=== PATIENT | female | born 1950 | race Caucasian/White ===

== ENCOUNTER 2017-06-23 09:13 | Emergency (ER) | payer OTHER ==
[~2017-06-23] VITALS: Ht 157.5 cm; Wt 63.8 kg
[~2017-06-23 09:13] MED LIST: ASPIRIN81 M1 PO; Antivert PO; CARAFATE100 MG/ML PO; FISH OIL 1,0001 EACH PO; LOSARTAN POTASS50 MG PO; MULTIVITAMIN1 EAC2 PO; NAPROXEN500 MG PO; VITAMIN B12-FO1 EACH PO; Zestril,Prinivil PO
[2017-06-23 09:25] VITALS: BP 174/107
== END 2017-06-23 10:32 | disposition left against medical advice (07) ==
LOC: EME 09:13
DX: I10 Essential (primary) hypertension (principal); M79.89 Other specified soft tissue disorders; R51 Headache; Z53.21 Procedure and treatment not carried out due to patient leaving prior to being seen by health care provider

== ENCOUNTER 2018-02-26 18:53 | Observation (INO) | payer OTHER ==
[~2018-02-26] VITALS: Ht 157.5 cm; Wt 67.3 kg
[~2018-02-26 18:53] MED LIST changes: +CENTURY ULTIMA1 EAC3 PO; +CYANOCOBALAM1000 MCG PO; +FISH OIL 1,0001 EAC7 PO; -FISH OIL 1,0001 EACH PO; -MULTIVITAMIN1 EAC2 PO; -VITAMIN B12-FO1 EACH PO
[2018-02-26 19:42] LABS: HEMATOCRIT 41.3 % (36.0-46.0); HEMOGLOBIN 13.7 G/DL (11.9-15.5); MCH 32.8 PG (29.0-34.0); MCHC 33.2 G/DL (30.0-36.0); MCV 98.8 FL (83-99); PLATELET COUNT 260 K/uL (156-360); RBC DIS.WIDTH-CV 12.6 % (11.8-14.6); RBC DIS.WIDTH-SD 45.9 % (39-53); RED BLOOD COUNT 4.18 M/uL (3.80-5.20); WHITE BLOOD COUNT 8.2 K/uL (4.1-10.2)
[2018-02-26 19:53] LABS: CHLORIDE 108 mEq/L (99-109); POTASSIUM 4.2 mEq/L (3.7-5.4); SODIUM 143 mEq/L (136-147)
[2018-02-26 19:55] LABS: GLUCOSE 92 mg/dL (70-99)
[2018-02-26 19:59] LABS: CREATININE 0.8 mg/dL (0.6-1.3); GFR ESTIMATE (CALCULATED) > 59 mL/min/
[2018-02-26 20:00] LABS: UREA NITROGEN (BUN) 21 mg/dL (9-23)
[2018-02-26 20:19] LABS: TROP-I INTERPRETATION NEGATIVE; TROPONIN-I < 0.01 ng/mL (0.0-0.30)
[2018-02-26] MEDS ORDERED: AMLODIPINE BESYL5 MG PO (21:14)
[2018-02-26] MEDS ORDERED: METOPROLOL SUC100 MG PO (21:14)
[2018-02-26] MEDS ORDERED: LOSARTAN POTAS100 MG PO (21:14)
[2018-02-26 21:49] VITALS: BP 139/80
[2018-02-26 23:50] VITALS: BP 157/74
[2018-02-27 03:07] LABS: TROP-I INTERPRETATION NEGATIVE; TROPONIN-I 0.22 ng/mL (0.0-0.30)
[2018-02-27 03:27] LABS: HDL CHOLESTEROL 32 MG/DL (Desirable>=50); LDL CHOLESTEROL 84 mg/dL (Desirable<100); NON-HDL CHOLESTEROL 103 mg/dL (Desirable<160); TOTAL CHOLESTEROL 135 mg/dL (Desirable<200); TRIGLYCERIDES 93 MG/DL (Normal: <150)
[2018-02-27 04:00] VITALS: BP 140/85
[2018-02-27 07:39] LABS: D-DIMER ELISA < 150.00 ng/mLDDU (<230)
[2018-02-27 07:41] VITALS: BP 122/75
[2018-02-27 08:47] LABS: TROP-I INTERPRETATION NEGATIVE; TROPONIN-I 0.17 ng/mL (0.0-0.30)
[2018-02-27] MEDS ORDERED: NITROSTAT0.4 MG SL (11:46)
== END 2018-02-27 12:03 | disposition home or self-care (01) ==
LOC: EME 18:53 → EDOF 21:02 → ENRESERV 21:04 → 5WEST 21:37 → ENPENDDIS 02-27 → 5WEST 02-27 12:03
PROVIDERS: Physician Assistant
DX: R07.9 Chest pain, unspecified (principal); E78.5 Hyperlipidemia, unspecified; I10 Essential (primary) hypertension; I65.29 Occlusion and stenosis of unspecified carotid artery; F17.210 Nicotine dependence, cigarettes, uncomplicated; Z82.49 Family history of ischemic heart disease and other diseases of the circulatory system; Z78.0 Asymptomatic menopausal state; R20.2 Paresthesia of skin; Z79.82 Long term (current) use of aspirin; M54.2 Cervicalgia; R51 Headache
CPT/HCPCS: 70450; 71046; 72125; 80048; 80061; 84484; 85027; 85379; 93005; 99281; 99285; G0378; J1644

== ENCOUNTER 2018-03-23 10:02 | Day surgery (SDC) | payer OTHER ==
[~2018-03-23] VITALS: Ht 158.1 cm; Wt 68.0 kg
[~2018-03-23 10:02] MED LIST changes: +AMLODIPINE BESYL5 MG PO; +LOSARTAN POTAS100 MG PO; +METOPROLOL SUC100 MG PO; +NITROSTAT0.4 MG SL
[2018-03-23 18:03] VITALS: BP 135/69
[2018-03-23 19:00] VITALS: BP 133/82
[2018-03-24 00:24] VITALS: BP 118/59
[2018-03-24 04:01] VITALS: BP 112/67
[2018-03-24 05:18] LABS: BASOPHIL (%) 0.8 % (0-1); BASOPHIL COUNT 0.1 K/uL (0-0.1); EOSINOPHIL (%) 3.2 % (0-5); EOSINOPHIL COUNT 0.3 K/uL (0-0.3); HEMATOCRIT 37.4 % (36.0-46.0); IMMATURE GRANULOCYTE (%) 0.1 % (0.0-0.7); LYMPHOCYTE COUNT 2.5 K/uL (1.0-2.8); MCH 31.3 PG (29.0-34.0); MCHC 32.1 G/DL (30.0-36.0); MCV 97.4 FL (83-99); MONOCYTE COUNT 0.7 K/uL (0-0.8); NEUTROPHIL (%) 58.9 % (45-76); NEUTROPHIL COUNT 5.2 K/uL (1.8-6.4); PLATELET COUNT 234 K/uL (156-360); RBC DIS.WIDTH-CV 13.1 % (11.8-14.6); RBC DIS.WIDTH-SD 46.4 % (39-53); RED BLOOD COUNT 3.84 M/uL (3.80-5.20); WHITE BLOOD COUNT 8.8 K/uL (4.1-10.2)
[2018-03-24 05:50] LABS: CHLORIDE 106 MEQ/L (99-109); CREATININE 0.7 MG/DL (0.6-1.3); GFR ESTIMATE (CALCULATED) > 59 mL/min/; GLUCOSE 94 mg/dL (70-99); SODIUM 140 MEQ/L (136-147); UREA NITROGEN (BUN) 15 mg/dL (9-23)
[2018-03-24] MEDS ORDERED: CLOPIDOGREL75 MG PO (09:57)
== END 2018-03-24 11:19 | disposition home or self-care (01) ==
LOC: CATH 10:02 → ENRESERV 14:49 → 4EAST 14:50 → 2SOUTH 14:50 → ENRESERV 15:07 → 4EAST 17:45
PROVIDERS: Internal Medicine Cardiovascular Disease
DX: I25.10 Atherosclerotic heart disease of native coronary artery without angina pectoris (principal); I25.84 Coronary atherosclerosis due to calcified coronary lesion; I10 Essential (primary) hypertension; E78.5 Hyperlipidemia, unspecified; Z79.82 Long term (current) use of aspirin; F17.200 Nicotine dependence, unspecified, uncomplicated
CPT/HCPCS: 80048; 85025; 85347; 93005; C1725; C1769; C1874; C1887; C1894; G0378; J1644; J2250; J3010; J3246